=== PATIENT | female | born 1980 | race African-American/Black ===

== ENCOUNTER 2017-06-11 20:13 | Emergency (ER) | payer MEDICAID ==
[2017-06-11 20:23] VITALS: BP 133/69
--- NOTE | 2017-06-11 22:45 | PHYS DOC ---
Past Medical History Past Medical History: No Pertinent History Additional Past Surgical Histo: D&C Alcohol Use: Rarely Drug Use: None Adult General Chief Complaint Chief Complaint: cramping spotting during HPI HPI Patient is a 36 year old female 6 para 3 SAB 2 who is 9 weeks by her history. She is visiting the area from [place]. She states 2 weeks ago she had an ultrasound at her OB doctor's office with positive heart tones and at that time was told that she was 7 weeks. Today she has had lower back and lower abdominal crampy pain. She's had some brown discharge when she wipes. No flow of blood. She hasn't had to use a pad. She just feels that "something is off" with the pain that she is having. Patient had 3 babies and 2 miscarriages. This is her sixth . She says she's never had RhoGAM, her blood type is O+. Review of Systems Review of Systems Constitutional: Denies fever or chills [] GI: She has had no nausea with this : As in history of present illness Allergies Allergies Allergies Coded Allergies Type Severity Reaction Last Updated Verified No Known Drug Allergies 06/11/17 No Physical Exam Physical Exam Constitutional: Well developed, well nourished, no acute distress, non-toxic appearance. Alert, mentating normally. HENT: Normocephalic, atraumatic, bilateral external ears normal, nose normal. [ ] Eyes: conjunctiva normal, no discharge. [] Neck: Normal range of motion, no stridor. [] Cardiovascular:Heart rate regular rhythm, no murmur [] Lungs & Thorax: Bilateral breath sounds clear to auscultation [] Abdomen: Bowel sounds normal, soft, no tenderness, no masses, no pulsatile masses. [] Skin: Warm, dry, no erythema, no rash. [] Extremities: No tenderness, no cyanosis, no clubbing, ROM intact, no edema. [] Neurologic: Alert and oriented X 3, normal motor function, normal sensory function, no focal deficits noted. [] Current Patient Data Vital Signs Vital Signs Date Time Temp Pulse Resp B/P (MAP) Pulse Ox O2 Delivery O2 Flow Rate FiO2 06/11/17 20:23 99.2 87 18 133/69 (90) 99 Room Air 99.2 Lab Values Laboratory Tests Test 06/11/17 19:33 POC Urine HCG, Qualitative Hcg positive (Negative) EKG EKG [] Radiology/Procedures Radiology/Procedures Pelvic ultrasound read by the radiologist. 8 week size fetus with no heart tones present. Otherwise unremarkable. [] Course & Med Decision Making Course & Med Decision Making Pertinent Labs and Imaging studies reviewed. (See chart for details) 36-year-old female 6 para 3 who is 9 weeks by her report, comes in with one day of lower abdominal and lower back cramping and brown spotting. She thinks "something is off". She is concerned and wants an ultrasound. She is Rh+. Pelvic ultrasound read by the radiologist, no heart tones. In light of the fact that the patient states 2 weeks ago she had an ultrasound with positive heart tones and a 7 week size fetus, this is very concerning for demise. At this time she has no bleeding but does have cramping and spotting. I discussed the finding and likely diagnosis with the patient. She was given referrals to OB physician's here at [facility], she does live in [place] and will be making a decision whether to stay here for treatment, she is thinking about doing that, may call tomorrow for appointment. Return precautions were given. See instructions for plan. [] Dragon Disclaimer Dragon Disclaimer This electronic medical record was generated, in whole or in part, using a voice recognition dictation system. Departure Departure Impression: Primary Impression: Threatened miscarriage in early Disposition: 01 HOME, SELF-CARE Condition: STABLE Referrals: NO PCP (PCP) ROSIE HENSLEY MD, DONALD G Jr MD Patient Instructions: Threatened Miscarriage, Nlja-wl-Oold Additional Instructions: As we discussed, the ultrasound shows no heartbeat tonight. This is concerning for a likely miscarriage, since you did have a heartbeat 2 weeks ago. Call tomorrow to arrange follow-up. Nothing in the vagina until you are cleared [employer]. If you have bleeding heavier than a period for 1-2 hours or more, return to emergency. KELTON DIXON MD Jun 11, 2017 22:45
--- NOTE | 2017-06-11 22:52 | RAD ---
Obstetrical ultrasound less than 14 weeks HISTORY: , spotting and cramping COMPARISON: None FINDINGS: Interpretation is made without the benefit of real-time exam. Multiple transabdominal sonographic images of the pelvis are submitted. Uterus measured 7.1 x 9.5 x 5.1 cm. There is 2.9 x 1.8 x 2 cm gestational sac. Ovaries are not well visualized on this portion of exam. Transvaginal ultrasound: Multiple transvaginal sonographic images of the pelvis are submitted. There is a single intrauterine gestational sac. There is identifiable pole and yolk sac. Yolk sac is somewhat irregular in appearance. While there is an identifiable pole, there is no demonstrable cardiac activity on M-mode analysis or color Doppler imaging. [place]-rump length measurement of 1.6 cm corresponds with 8 weeks 0 days. Adjusted ultrasound age is 8 weeks 0 days with estimated delivery date by ultrasound of 01/21/2018. Subjectively the amniotic fluid volume is within normal limits. Gestational sac measurement is on the order of 2.9 cm. Right ovary measured 3.6 x 1.9 x 1.9 cm. The left ovary measured 3.8 x 2.7 x 2.6 cm. There is normal low resistance vascularity of both ovaries. There is a focus of different echogenicity of the left ovary on the order of 1.4 x 1.5 x 1.6 cm, may be a corpus luteal cyst. IMPRESSION: 1. There is a single intrauterine gestational sac with identifiable pole although no cardiac activity demonstrated. Findings are concerning for demise given the estimated age and size of gestational sac. However short-term interval follow-up could be beneficial to ensure no developing cardiac activity. 2. Focus of different echogenicity of the left ovary is probably due to a corpus luteal cyst. Electronically signed by: Oli Leyva MD (06/11/2017 10:49 PM) [facility]
== END 2017-06-11 23:15 | disposition home or self-care (01) ==
LOC: ER 20:13
DX: O20.0 Threatened abortion (principal); Z3A.09 9 weeks gestation of pregnancy
CPT/HCPCS: 76801; 81025; 99284-25

== ENCOUNTER 2017-06-13 11:50 | Day surgery (SDC) | payer MEDICAID ==
[~2017-06-13] VITALS: Ht 165.1 cm; Wt 85.3 kg
[2017-06-13] MEDS ORDERED: PNV1TABL25 PO (12:05)
[2017-06-13] MEDS ORDERED: IV RINGERS,LACTATED 1000ML 1,000 ML IV SCH ×2 (12:15→14:33)
[2017-06-13] MEDS ORDERED: LIDOCAINE 2% PF Vial for OR 5 ML VIAL. ONE (12:53)
[2017-06-13] MEDS ORDERED: PROPOFOL 20 ML IV ONE (12:53)
[2017-06-13] MEDS ORDERED: fentaNYL PF VIAL 100 MCG/2 ML VIAL ONE ×2 (12:53→14:33)
[2017-06-13] MEDS ORDERED: DEXAMETHASONE SOD PHOS 20 MG/5 ML VIAL. ONE (14:02)
[2017-06-13] MEDS ORDERED: SEVOFLURANE UP TO 15 MINUTES. IH ONE (14:02)
[2017-06-13] MEDS ORDERED: ONDANSETRON PF 4 MG/2 ML VIAL. ONE (14:02)
--- NOTE | 2017-06-13 14:20 | PDOC ---
BRIEF OPERATIVE NOTE Pre-Op Diagnosis INcomplete Ab Post-Op Diagnosis Same Procedure Performed Suction D&C Surgeon Dr. Lubin Anesthesia Type: General Blood Loss 50 ml Specimens Obtained POC Findings POC and enlarged uterus Complications none SAMIR LUBIN Jr, MD Jun 13, 2017 14:20
--- NOTE | 2017-06-13 14:21 | DISCH ---
DISCHARGE INSTRUCTIONS Condition on Discharge Condition on Discharge: Stable Activity After Discharge Activity Instructions for Disc: Activity as tolerated Lifting Instructions after Dis: No heavy lifting Driving Instructions after Dis: Do not drive today Diet after Discharge Diet after Discharge: Regular Contacting the DRJosseline after DC Call your doctor for: Concerns you may have Follow-Up Follow up with: [employer] in [place] in 1 week. SAMIR CHEATHAM Jr, MD Jun 13, 2017 14:21
[2017-06-13] MEDS ORDERED: OXYC-323 PO (14:37)
[2017-06-13] MEDS ORDERED: MORPHINE SULFATE 4 MG/ML DISP.SYRIN. IV PRN (14:45)
[2017-06-13] MEDS ORDERED: fentaNYL PF VIAL 100 MCG/2 ML VIAL IV PRN ×2 (14:45)
[2017-06-13] MEDS ORDERED: LIDOCAINE 1% 1 ML SYRINGE. ID PRN (14:45)
[2017-06-13] MEDS ORDERED: HYDROmorphone 2 MG/ML VIAL IV PRN (14:45)
[2017-06-13] MEDS ORDERED: ONDANSETRON PF 4 MG/2 ML VIAL. IV PRN (14:45)
[2017-06-13] MEDS ORDERED: PROCHLORPERAZINE 10 MG/2 ML VIAL. ONE (14:47)
[2017-06-13] MEDS: PROCHLORPERAZINE 10 MG/2 ML VIAL. IV PRN ×2 (14:52→14:53)
[2017-06-13 15:25] VITALS: BP 130/64
--- NOTE | 2017-06-13 19:29 | OP ---
DATE OF SURGERY: 06/13/2017 PREOPERATIVE DIAGNOSIS: Incomplete . POSTOPERATIVE DIAGNOSIS: Incomplete . PROCEDURE: Suction D and C. SURGEON: Dr. Lubin. ANESTHESIA: GETA. ESTIMATED BLOOD LOSS: 50 mL. COMPLICATIONS: None. FINDINGS: Products of conception, enlarged uterus. SUMMARY: A 36-year-old female, who presented to Emergency Department with incomplete of vaginal bleeding and abdominal cramping. She seen in the clinic and evaluated. The patient required suction D and C. The patient has ____ very soon for employment. She was counseled against any travel due to the nature of her condition and incomplete with active bleeding. She was counseled have an urgent suction D and C. following day and voiced clear understanding. DESCRIPTION OF PROCEDURE: The patient was taken to surgery suite and placed in dorsal lithotomy position. She was prepped with Betadine solution and draped in a sterile fashion. After adequate anesthesia, a weighted speculum and curved Evelyn placed vaginally. Anterior lip of the cervix grasped with single tooth tenaculum. The uterus was dilated with Denice dilators up to size 9. An 8 mm curved tip suction curette was then passed using a 60 mmHg for pressure. The suction curette was rotated in a circumferential manner removing products of conception and blood clot. Sharp curettage took place until a fine gritty surface was palpated circumferentially. The suction curette was passed once again to remove blood and blood products and products of conception. Single tooth tenaculum was removed. The patient tolerated procedure well and was taken to recovery room in stable condition. Sponge and needle count correct x 3. SAMIR LUBIN MD DR: MEAGAN/abi JOB#: [id number] / [id number]
--- NOTE | 2017-06-15 16:26 | PATHOLOGY ---
PATHOLOGY REPORT * * * * * * * * FINAL DIAGNOSIS: Uterine contents, suction D and C: - Products of conception, comprised of small segments of tissue, immature chorionic villi showing focal degenerative changes, and segments of decidual tissue. ([facility]; 06/15/2017) REPORT ELECTRONICALLY SIGNED BY: Hebert Husain M.D. DATE/TIME: 06/15/2017 16:26 * * * * * * * * GROSS PATHOLOGY: The specimen is received in formalin, designated "Wilfred Jenkins, products of conception" and is received within a white cloth collection device along with a segment of telfa. The specimen is spongy dark reddish purple soft tissue having an aggregate measurement of 3.8 x 3.2 x 0.8 cm. There are no grossly evident or embryonic parts. The specimen is submitted entirely in cassettes A1 through A3. ([facility]; 06/14/17) INITIAL CPT CODE(S): A; 12549 Professional services performed by [facility] [place] [address] Technical services performed by [facility] at [address] [place] [address] [address] [address]. SPECIMEN(S) RECEIVED: A.Products of conception CLINICAL HISTORY: Missed PATIENT: WILFRED JENKINS /AGE: 907/30/1980 (Age: 36) PATIENT #: [id number] ALT CASE #: SPECIMEN COLLECTION DATE: 06/13/2017 SPECIMEN RECEIVED DATE: 06/14/2017 [facility] - [address] [place] [address] - PHONE: [phone] * * * END OF REPORT * * *
== END 2017-06-13 15:45 | disposition home or self-care (01) ==
LOC: SURG 11:50
PROVIDERS: ATTEND Obstetrics & Gynecology
DX: O03.4 Incomplete spontaneous abortion without complication (principal); Z87.440 Personal history of urinary (tract) infections
CPT/HCPCS: 59812; J0690; J0780; J1100; J2001; J2405; J2704; J3010